=== PATIENT | male | born 1970 | race Caucasian/White ===

== ENCOUNTER 2019-03-28 10:52 | Inpatient (IN) | payer BC, OTHER ==
[~2019-03-28] VITALS: Ht 185.4 cm; Wt 129.6 kg
[2019-03-28] MEDS ORDERED: normal saline 1000ML IV soln IVB ONE (11:20)
[2019-03-28] MEDS ORDERED: morphine 4 MG/ML inj SYRINge IV PRN (11:20)
[2019-03-28] MEDS ORDERED: ondansetron/PF 4mg/2ml inj IV ONE (11:20)
[2019-03-28 11:24] LABS: CLARITY,URINE CLEAR (Clear); COLOR,URINE YELLOW (Yellow); GLUCOSE, URINE >=1000 mg/dl (Neg); KETONES,URINE >=80 mg/dl (Neg); LEUKOCYTE ESTERASE ,URINE NEGATIVE (Neg); NITRITES, URINE NEGATIVE (Neg); OCCULT BLOOD,URINE SMALL (Neg); PROTEIN,URINE 100 mg/dl (Neg); UROBILINOGEN,URINE 0.2 E.U/dL (0.2-1.0)
[2019-03-28 11:25] LABS: UA COLLECTION TYPE CLN CATCH MIDSTREAM
[2019-03-28 11:36] LABS: WBC,URINE 0-4 /HPF (0-4)
[2019-03-28 11:37] LABS: SQUAMOUS EPITHELIAL CELL,UR FEW /LPF (FEW)
[2019-03-28 11:38] LABS: MUCUS STRANDS FEW /LPF (Neg)
[2019-03-28 11:47] LABS: BACTERIA,URINE NONE SEEN /HPF (Neg)
[2019-03-28 12:07] LABS: BASOPHILS # (AUTO) 0.1 X10'3 (0-0.2); BASOPHILS % (AUTO) 0.6 % (0-1); EOSINOPHILS # (AUTO) 0.1 X10'3 (0-0.9); HEMATOCRIT 41.7 % (42.0-52.0); HEMOGLOBIN 14.8 g/dl (14.0-17.9); LYMPHOCYTES # (AUTO) 1.8 X10'3 (1.1-4.8); MEAN CORPUSCULAR HEMOGLOBIN 29.2 PG (27.0-31.0); MEAN CORPUSCULAR HGB CONC 35.4 g/dL (33.0-36.5); MEAN CORPUSCULAR VOLUME 82.3 FL (78-98); MEAN PLATELET VOLUME 9.5 FL (7.4-10.4); MONOCYTES # (AUTO) 0.9 X10'3 (0-0.9); MONOCYTES % (AUTO) 6.8 % (2-12); NEUTROPHILS # (AUTO) 10.7 X10'3 (1.8-7.7); NEUTROPHILS % (AUTO) 78.6 % (42-75); PLATELET COUNT 173 X10'3 (140-440); RED BLOOD COUNT 5.07 X10'6 (4.70-6.10); RED CELL DISTRIBUTION WIDTH 13.9 % (11.5-14.5); WHITE BLOOD COUNT 13.6 X10'3 (4.5-11.0)
[2019-03-28 12:24] LABS: ALANINE AMINOTRANSFERASE 37 U/L (12-78); ALBUMIN 3.8 G/DL (3.4-5.0); ALBUMIN/GLOBULIN RATIO 0.9 (1.1-1.5); ALKALINE PHOSPHATASE 120 IU/L (46-116); ASPARTATE AMINO TRANSFERASE 21 U/L (10-37); BLOOD UREA NITROGEN 11 MG/DL (7-18); BUN/CREATININE RATIO 10.8 (5.4-32.0); CALCIUM 8.1 MG/DL (8.5-10.1); CHLORIDE 97 MMOL/L (99-107); CREATININE 1.02 MG/DL (0.60-1.10); GLUCOSE 329 MG/DL (70-104); POTASSIUM 4.7 MMOL/L (3.5-5.1); SODIUM 130 MMOL/L (135-145); TOTAL PROTEIN 8.2 G/DL (6.4-8.2); eGFR 78 ML/MIN
[2019-03-28 12:26] LABS: ANION GAP 11 (8-16); LIPASE 1740 U/L (73-393)
[2019-03-28] MEDS ORDERED: iohexol 300mg/ml 100ml inj. ONE (12:45)
[2019-03-28] MEDS ORDERED: ketorolac trometh. 30mg/ml inj. IV ONE (13:35)
[2019-03-28] MEDS ORDERED: normal saline 1000ML IV soln IV ONE (13:35)
[2019-03-28] MEDS ORDERED: piperacillin/tazo 3.375gm/50ml 50 ML IV ONE (13:35)
[2019-03-28] MEDS ORDERED: AMLO10TA2 PO (13:52)
[2019-03-28] MEDS ORDERED: SPIR25TA5 PO (13:52)
[2019-03-28] MEDS ORDERED: VALS320T2 PO (13:52)
[2019-03-28] MEDS ORDERED: fentaNYL/PF 50MCG/1 ML 2ML syringe IV ONE (13:55)
[2019-03-28] MEDS: K and/or MAG REPLACEMENT MC SCH (14:30)
[2019-03-28] MEDS ORDERED: ondansetron/PF 4mg/2ml inj IV PRN (14:30)
[2019-03-28] MEDS ORDERED: acetaminophen 325mg tablet PO PRN (14:30)
[2019-03-28] MEDS ORDERED: potassium Cl 20 mEq SR tablet PO PRN ×2 (14:30)
[2019-03-28] MEDS ORDERED: magnesium Cl slow-release 64mg tablet PO PRN (14:30)
[2019-03-28] MEDS ORDERED: metoclopramide 5 mg/ml inj IV PRN (14:30)
[2019-03-28] MEDS ORDERED: morphine 2 MG/ML inj. syringe IV PRN (14:30)
[2019-03-28] MEDS ORDERED: diphenhydrAMINE 25mg capsule PO PRN (14:30)
[2019-03-28] MEDS ORDERED: magnesium hydroxide 30ml (MOM) UD suspension PO PRN (14:30)
[2019-03-28] MEDS ORDERED: bisacodyl 10mg suppository rectal RC PRN (14:30)
[2019-03-28] MEDS ORDERED: potassium CL 10mEq/100ml bag 100 ML IV PRN ×2 (14:30)
[2019-03-28] MEDS ORDERED: magnesium 4gm in 100ml NS 100 ML IV PRN (14:30)
[2019-03-28] MEDS ORDERED: diphenhydrAMINE 50 mg/ml inj IV PRN (14:30)
[2019-03-28] MEDS ORDERED: magnesium 2GM in 50ml NS 50 ML IV PRN (14:30)
[2019-03-28] MEDS ORDERED: mag hydrox/Alum hydrox/simeth 30ml oral suspension PO PRN (14:30)
[2019-03-28] MEDS: normal saline 1000ml 1,000 ML IV SCH (14:30)
--- NOTE | 2019-03-28 14:39 | NUR ---
KAL: JAMES: [phone]
[2019-03-28 14:47] LABS: INR 0.9 INR
--- NOTE | 2019-03-28 15:44 | NUR ---
Patient in room . I have received report from GAS PLUMBING INSPECTOR and had the opportunity to ask questions and assume patient care.
[2019-03-28] MEDS ORDERED: piperacillin/tazo 3.375gm/50ml 50 ML IV SCH ×2 (16:00→20:11)
[2019-03-28 16:16] VITALS: BP 133/72
--- NOTE | 2019-03-28 16:42 | NUR ---
Patient oriented to room, call light with in reach
[2019-03-28] MEDS: morphine 2 MG/ML inj. syringe IV PRN ×2 (17:25→20:59)
[2019-03-28 17:45] LABS: HEMOGLOBIN A1C 11.2 % (4.5-6.2)
[2019-03-28 18:00] VITALS: BP 125/78
--- NOTE | 2019-03-28 18:30 | NUR ---
Patient in room [facility]. I have received report from NAGI Quigley and had the opportunity to ask questions and assume patient care.
--- NOTE | 2019-03-28 19:10 | NUR ---
Pt down to MRI
[2019-03-28] MEDS ORDERED: MESSAGE TO PHARMACY PO ONE (20:00)
[2019-03-28] MEDS ORDERED: dextrose 50%-water 50ml dispensing syringe IV PRN ×2 (20:00)
[2019-03-28] MEDS ORDERED: dextrose ORAL solution 15 GM/59 ML bottle PO PRN ×2 (20:00)
[2019-03-28] MEDS ORDERED: glucagon, human recombinant 1mg kit SUBCUT PRN (20:00)
[2019-03-28] MEDS: heparin, porcine 5000 units/ml vial SQ SCH (20:21)
[2019-03-28] MEDS: piperacillin/tazo 3.375gm/50ml 50 ML IV SCH (20:27)
[2019-03-28] MEDS: vancomycin/NS 1 GM ADD-VANTAGE 250 ML IV SCH ×2 (20:46→22:26)
[2019-03-28] MEDS: insulin glargine (Lantus) pen - multi-dose SQ SCH (21:57)
[2019-03-28] MEDS: insulin Lispro (HumaLOG) vial - multi-dose SQ SCH (21:58)
[2019-03-28] MEDS: acetaminophen 325mg tablet PO PRN (23:11)
[2019-03-28 23:35] VITALS: BP 119/67
[2019-03-28 23:35] LABS: URINE AMPHETAMINE SCREEN NEGATIVE (Neg); URINE BARBITUATE SCREEN NEGATIVE (Neg); URINE BENZODIAZEPINES SCREEN NEGATIVE (Neg); URINE CANNABINOID SCREEN NEGATIVE (Neg); URINE COCAINE SCREEN NEGATIVE (Neg); URINE METHADONE SCREEN NEGATIVE (Neg); URINE OPIATE SCREEN POSITIVE (Neg); URINE PHENCYCLIDINE SCREEN NEGATIVE (Neg)
[2019-03-28 23:36] LABS: CLARITY,URINE CLEAR (Clear); COLOR,URINE YELLOW (Yellow); GLUCOSE, URINE 500 mg/dl (Neg); KETONES,URINE 40 mg/dl (Neg); LEUKOCYTE ESTERASE ,URINE NEGATIVE (Neg); NITRITES, URINE NEGATIVE (Neg); OCCULT BLOOD,URINE SMALL (Neg); PH,URINE 5.5 (4.8-8.0); PROTEIN,URINE 30 mg/dl (Neg)
[2019-03-28 23:38] LABS: UA COLLECTION TYPE VOIDED
[2019-03-28 23:52] LABS: BACTERIA,URINE NONE SEEN /HPF (Neg); RBC,URINE 0-2 /HPF (0-2); SQUAMOUS EPITHELIAL CELL,UR FEW /LPF (FEW); WBC,URINE NONE SEEN /HPF (0-4)
[2019-03-29] MEDS: morphine 2 MG/ML inj. syringe IV PRN (02:53)
[2019-03-29] MEDS: piperacillin/tazo 3.375gm/50ml 50 ML IV SCH ×3 (04:14→21:53)
[2019-03-29] MEDS: normal saline 1000ml 1,000 ML IV SCH ×3 (04:14→20:30)
[2019-03-29 05:05] LABS: ALBUMIN 2.6 G/DL (3.4-5.0); ALKALINE PHOSPHATASE 76 IU/L (46-116); ANION GAP 10 (8-16); BILIRUBIN,TOTAL 1.9 MG/DL (0.1-1.0); BLOOD UREA NITROGEN 8 MG/DL (7-18); BUN/CREATININE RATIO 9.6 (5.4-32.0); CHLORIDE 101 MMOL/L (99-107); CREATININE 0.83 MG/DL (0.60-1.10); HDL CHOLESTEROL 21 MG/DL (35-60); LDL CHOLESTEROL 42 MG/DL (50-100); LIPASE 851 U/L (73-393); MAGNESIUM 1.9 MG/DL (1.5-2.4); SODIUM 133 MMOL/L (135-145); TOTAL CARBON DIOXIDE 22.2 MMOL/L (24-32); eGFR > 90 ML/MIN
[2019-03-29 05:22] LABS: ALBUMIN/GLOBULIN RATIO 0.7 (1.1-1.5); CHOL/HDL RATIO 11.6 (0.00-4.99); CHOLESTEROL 244 MG/DL (0-200); GLUCOSE 244 MG/DL (70-104); PHOSPHORUS 2.4 MG/DL (2.3-4.5); POTASSIUM 3.7 MMOL/L (3.5-5.1); TOTAL PROTEIN 6.3 G/DL (6.4-8.2)
[2019-03-29 05:30] LABS: ALANINE AMINOTRANSFERASE 28 U/L (12-78); ASPARTATE AMINO TRANSFERASE 25 U/L (10-37); TRIGLYCERIDES 1628 MG/DL (20-135)
--- NOTE | 2019-03-29 06:27 | NUR ---
Problems reprioritized. Patient report given, questions answered & plan of care reviewed with NAGI Montoya.
[2019-03-29 07:23] LABS: HEMATOCRIT 39.8 % (42.0-52.0); HEMOGLOBIN 14.1 g/dl (14.0-17.9); MEAN CORPUSCULAR HEMOGLOBIN 29.2 PG (27.0-31.0); MEAN CORPUSCULAR HGB CONC 35.3 g/dL (33.0-36.5); MEAN CORPUSCULAR VOLUME 82.7 FL (78-98); MEAN PLATELET VOLUME 11.1 FL (7.4-10.4); PLATELET COUNT 194 X10'3 (140-440); RED BLOOD COUNT 4.82 X10'6 (4.70-6.10); RED CELL DISTRIBUTION WIDTH 13.8 % (11.5-14.5); WHITE BLOOD COUNT 13.3 X10'3 (4.5-11.0)
[2019-03-29 07:28] LABS: TOTAL CELLS COUNTED 100
[2019-03-29 07:30] LABS: PLATELET ESTIMATE NORMAL
[2019-03-29 08:00] VITALS: BP 136/75
[2019-03-29] MEDS ORDERED: non-formulary drug (Amlodipine Besylate 1 TAB) PO SCH (08:00)
[2019-03-29] MEDS ORDERED: VALSARTAN PO SCH (08:00)
[2019-03-29] MEDS: K and/or MAG REPLACEMENT MC SCH (08:00)
[2019-03-29] MEDS: HYDROcodone/acetaminophen 10/325mg tab PO PRN ×3 (08:41→19:33)
[2019-03-29] MEDS: losartan 50mg tablet PO SCH (08:42)
[2019-03-29] MEDS: amLODIPine 5mg tablet PO SCH (08:42)
[2019-03-29] MEDS: spironolactone 25 MG tablet PO SCH (08:42)
[2019-03-29] MEDS: heparin, porcine 5000 units/ml vial SQ SCH ×2 (08:43→20:24)
[2019-03-29] MEDS: insulin Lispro (HumaLOG) vial - multi-dose SQ SCH ×2 (08:50→19:48)
[2019-03-29] MEDS: omega-3 acid ethyl esters 1GM capsule PO SCH ×2 (11:07→19:33)
[2019-03-29] MEDS: atorvastatin 20mg tablet PO SCH (11:07)
[2019-03-29 11:20] VITALS: BP 140/73
--- NOTE | 2019-03-29 11:45 | NUR ---
Patient in room [facility]. I have received report from Romain BARFIELD and had the opportunity to ask questions and assume patient care.
--- NOTE | 2019-03-29 12:39 | NUR ---
DM Consult: A1C 11.2. Pt admit w/ abdominal pain hx 3 weeks prior DX acute pancreatitis lipase down to 851 today, TG 1628, newly DX DM w/ GLU 261 on admit. Per MD note sepsis from cholangitis s/p MRCP showing no gallstones; CT shows hepatic steatosis w/ DX non-alcoholic steatohepatitis per MD. To remain NPO at this time. LBM 9/10. Per EMR pt having nausea/abdominal pain still. Pt will need thorough DM/HH diet eds once more stable prior to d/c given newly DX DM and TG 1628. Pt is placed on hyperglycemia protocol and receiving lipitor. Will continue to monitor. Rec: 1. advance diet per MD to low-fat/heart healthy/carb controlled 2. DM/HH diet eds once stable prior to d/c 3. wt per rx Addendum: 03/29/19 at [address] Amended: Links added.
--- NOTE | 2019-03-29 12:52 | NUR ---
pages Dr. Alfonso - pt states you told him he could have a liquid diet? Please clarify, as liquid diet order has not been placed. NAGI Montoya [id number]
[2019-03-29 13:31] VITALS: BP 135/78
--- NOTE | 2019-03-29 14:51 | NUR ---
Student Medication Administration: For this medication-pass time frame, all medication were reviewed, dispensed, administered and documented per hospital policy by Arcelia LAZAR.
--- NOTE | 2019-03-29 17:28 | NUR ---
Student Medication Administration: For this medication-pass time frame, all medication were reviewed, dispensed, administered and documented per hospital policy by Dominga Student Nurse.
--- NOTE | 2019-03-29 17:31 | NUR ---
Student documentation: I have reviewed and agree with all interventions, assessments performed and documented by Dominga Student Nurse.
--- NOTE | 2019-03-29 17:57 | NUR ---
Student Medication Administration: For this medication-pass time frame, all medication were reviewed, dispensed, administered and documented per hospital policy by Gemma BONILLA [facility].
[2019-03-29] MEDS ORDERED: SINCALIDE IV ONE (18:00)
[2019-03-29] MEDS ORDERED: NORMAL SALINE IV ONE (18:00)
--- NOTE | 2019-03-29 18:05 | NUR ---
Patient in room [facility]. I have received report from Kalee LAZAR and had the opportunity to ask questions and assume patient care.
[2019-03-29] MEDS: lactobacillus rhamnosus 10,000 MMU CELLS/CAPSULE PO SCH (19:33)
[2019-03-29 20:00] VITALS: BP 146/85
[2019-03-29] MEDS: insulin glargine (Lantus) pen - multi-dose SQ SCH (21:43)
[2019-03-30] VITALS: BP 140/73
[2019-03-30] MEDS ORDERED: VANCOMYCIN LEVEL IV ONE ×2 (03:30)
[2019-03-30] MEDS: HYDROcodone/acetaminophen 5mg/325mg tablet PO PRN ×3 (04:08→21:02)
[2019-03-30] MEDS: piperacillin/tazo 3.375gm/50ml 50 ML IV SCH ×3 (04:19→22:17)
[2019-03-30 04:54] LABS: BASOPHILS # (AUTO) 0.1 X10'3 (0-0.2); BASOPHILS % (AUTO) 0.6 % (0-1); EOSINOPHILS # (AUTO) 0.1 X10'3 (0-0.9); EOSINOPHILS % (AUTO) 1.2 % (0-6); HEMATOCRIT 37.6 % (42.0-52.0); HEMOGLOBIN 13.1 g/dl (14.0-17.9); LYMPHOCYTES # (AUTO) 1.4 X10'3 (1.1-4.8); LYMPHOCYTES % (AUTO) 13.9 % (21-51); MEAN CORPUSCULAR HEMOGLOBIN 29.2 PG (27.0-31.0); MEAN CORPUSCULAR HGB CONC 34.8 g/dL (33.0-36.5); MEAN CORPUSCULAR VOLUME 83.8 FL (78-98); MEAN PLATELET VOLUME 10.3 FL (7.4-10.4); MONOCYTES # (AUTO) 0.8 X10'3 (0-0.9); MONOCYTES % (AUTO) 7.3 % (2-12); PLATELET COUNT 101 X10'3 (140-440); RED BLOOD COUNT 4.49 X10'6 (4.70-6.10); RED CELL DISTRIBUTION WIDTH 14.4 % (11.5-14.5); WHITE BLOOD COUNT 10.4 X10'3 (4.5-11.0)
[2019-03-30 05:10] LABS: ALBUMIN 2.5 G/DL (3.4-5.0); ALBUMIN/GLOBULIN RATIO 0.6 (1.1-1.5); ALKALINE PHOSPHATASE 75 IU/L (46-116); BILIRUBIN,TOTAL 1.4 MG/DL (0.1-1.0); BLOOD UREA NITROGEN 7 MG/DL (7-18); BUN/CREATININE RATIO 8.5 (5.4-32.0); CALCIUM 7.1 MG/DL (8.5-10.1); CREATININE 0.82 MG/DL (0.60-1.10); LIPASE 381 U/L (73-393); MAGNESIUM 2.1 MG/DL (1.5-2.4); TOTAL CARBON DIOXIDE 22.3 MMOL/L (24-32); TOTAL PROTEIN 6.9 G/DL (6.4-8.2); eGFR > 90 ML/MIN
[2019-03-30 06:06] LABS: ALANINE AMINOTRANSFERASE 23 U/L (12-78); ANION GAP 12 (8-16); ASPARTATE AMINO TRANSFERASE 18 U/L (10-37); CHLORIDE 100 MMOL/L (99-107); GLUCOSE 196 MG/DL (70-104); PHOSPHORUS 1.6 MG/DL (2.3-4.5); POTASSIUM 3.8 MMOL/L (3.5-5.1); SODIUM 134 MMOL/L (135-145)
--- NOTE | 2019-03-30 06:28 | NUR ---
Problems reprioritized. Patient report given, questions answered & plan of care reviewed with Laura LAZAR.
[2019-03-30 07:31] VITALS: BP 127/66
[2019-03-30 08:00] VITALS: BP 112/79
[2019-03-30] MEDS: K and/or MAG REPLACEMENT MC SCH (08:00)
[2019-03-30] MEDS: heparin, porcine 5000 units/ml vial SQ SCH ×2 (08:00→19:29)
[2019-03-30] MEDS: normal saline 1000ml 1,000 ML IV SCH ×2 (08:10→16:30)
[2019-03-30] MEDS: spironolactone 25 MG tablet PO SCH (08:11)
[2019-03-30] MEDS: losartan 50mg tablet PO SCH (08:12)
[2019-03-30] MEDS: atorvastatin 20mg tablet PO SCH (08:12)
[2019-03-30] MEDS: lactobacillus rhamnosus 10,000 MMU CELLS/CAPSULE PO SCH ×2 (08:12→19:25)
[2019-03-30] MEDS: omega-3 acid ethyl esters 1GM capsule PO SCH ×2 (08:13→19:23)
[2019-03-30] MEDS: amLODIPine 5mg tablet PO SCH (08:13)
[2019-03-30] MEDS: fenofibrate 145mg tablet PO SCH (08:16)
[2019-03-30] MEDS: insulin Lispro (HumaLOG) vial - multi-dose SQ SCH ×3 (10:13→19:16)
[2019-03-30 11:44] VITALS: BP 101/71
[2019-03-30 12:00] VITALS: BP 101/74
--- NOTE | 2019-03-30 12:30 | NUR ---
Patient in room [facility]. I have received report from Laura LAZAR and had the opportunity to ask questions and assume patient care.
--- NOTE | 2019-03-30 14:40 | NUR ---
F/u: Pt seen by RD for written/verbal DM/heart healthy eds along w/ RD contact information and CDE course information provided given new DM DX and hypertriglyceridemia. Pt refused verbal DM and heart healthy eds reports "he will ask questions if he has any." RD encouraged attending CDE course and contacting RD for further questions. Will likely need DM/HH reinforcement prior to d/c if pt agreeable. Addendum: 03/30/19 at [address] Amended: Links added.
--- NOTE | 2019-03-30 17:18 | NUR ---
I have reviewed the assessment, intervention, and documentation done by Antwan Taylor, [facility].
--- NOTE | 2019-03-30 17:55 | NUR ---
Problems reprioritized. Patient report given, questions answered & plan of care reviewed with Laura LAZAR.
[2019-03-30 18:00] VITALS: BP 132/85
--- NOTE | 2019-03-30 18:00 | NUR ---
Patient in room [facility]. I have received report from Laura LAZAR and had the opportunity to ask questions and assume patient care.
[2019-03-30] MEDS: Neutra Phos packet PO SCH (21:03)
[2019-03-30] MEDS: insulin glargine (Lantus) pen - multi-dose SQ SCH (22:07)
[2019-03-31 00:02] VITALS: BP 106/65
[2019-03-31] MEDS ORDERED: VANCOMYCIN LEVEL IV ONE ×2 (01:30→19:30)
[2019-03-31 01:51] LABS: BASOPHILS # (AUTO) 0.1 X10'3 (0-0.2); BASOPHILS % (AUTO) 1.1 % (0-1); EOSINOPHILS # (AUTO) 0.3 X10'3 (0-0.9); HEMATOCRIT 33.9 % (42.0-52.0); HEMOGLOBIN 11.7 g/dl (14.0-17.9); LYMPHOCYTES # (AUTO) 1.9 X10'3 (1.1-4.8); MEAN CORPUSCULAR HEMOGLOBIN 28.2 PG (27.0-31.0); MEAN CORPUSCULAR HGB CONC 34.4 g/dL (33.0-36.5); MEAN CORPUSCULAR VOLUME 81.8 FL (78-98); MONOCYTES # (AUTO) 0.7 X10'3 (0-0.9); MONOCYTES % (AUTO) 8.1 % (2-12); NEUTROPHILS # (AUTO) 5.9 X10'3 (1.8-7.7); NEUTROPHILS % (AUTO) 66.8 % (42-75); PLATELET COUNT 108 X10'3 (140-440); RED BLOOD COUNT 4.14 X10'6 (4.70-6.10); RED CELL DISTRIBUTION WIDTH 13.9 % (11.5-14.5); WHITE BLOOD COUNT 8.9 X10'3 (4.5-11.0)
[2019-03-31] MEDS: acetaminophen 325mg tablet PO PRN (01:54)
[2019-03-31 02:07] LABS: ALANINE AMINOTRANSFERASE 19 U/L (12-78); ALBUMIN 2.3 G/DL (3.4-5.0); ALBUMIN/GLOBULIN RATIO 0.6 (1.1-1.5); ALKALINE PHOSPHATASE 67 IU/L (46-116); ANION GAP 8 (8-16); BILIRUBIN,TOTAL 0.9 MG/DL (0.1-1.0); BLOOD UREA NITROGEN 6 MG/DL (7-18); BUN/CREATININE RATIO 8.3 (5.4-32.0); CALCIUM 7.6 MG/DL (8.5-10.1); CHLORIDE 103 MMOL/L (99-107); CREATININE 0.72 MG/DL (0.60-1.10); GLUCOSE 167 MG/DL (70-104); LIPASE 263 U/L (73-393); MAGNESIUM 2.1 MG/DL (1.5-2.4); PHOSPHORUS 2.2 MG/DL (2.3-4.5); SODIUM 136 MMOL/L (135-145); TOTAL PROTEIN 6.4 G/DL (6.4-8.2); VANCOMYCIN,TROUGH 14.2 UG/ML (6.0-14.0); eGFR > 90 ML/MIN
[2019-03-31 02:08] LABS: ASPARTATE AMINO TRANSFERASE 16 U/L (10-37); POTASSIUM 3.5 MMOL/L (3.5-5.1)
[2019-03-31] MEDS: normal saline 1000ml 1,000 ML IV SCH ×2 (02:30→12:30)
[2019-03-31] MEDS: piperacillin/tazo 3.375gm/50ml 50 ML IV SCH (05:03)
--- NOTE | 2019-03-31 06:14 | NUR ---
Problems reprioritized. Patient report given, questions answered & plan of care reviewed with Stephie LAZAR. Addendum: 03/31/19 at 0616 by Hugh Mcknight RN Report given to Vinayak LAZAR, not Stephie LAZAR
--- NOTE | 2019-03-31 06:38 | NUR ---
Problems reprioritized. Patient report given, questions answered & plan of care reviewed with Hugh LAZAR.
[2019-03-31 06:53] VITALS: BP 128/78
[2019-03-31] MEDS: omega-3 acid ethyl esters 1GM capsule PO SCH (07:45)
[2019-03-31] MEDS: atorvastatin 20mg tablet PO SCH (07:45)
[2019-03-31] MEDS: lactobacillus rhamnosus 10,000 MMU CELLS/CAPSULE PO SCH (07:46)
[2019-03-31] MEDS: spironolactone 25 MG tablet PO SCH (07:46)
[2019-03-31] MEDS: Neutra Phos packet PO SCH ×2 (07:47→12:29)
[2019-03-31] MEDS: losartan 50mg tablet PO SCH (07:47)
[2019-03-31] MEDS: amLODIPine 5mg tablet PO SCH (07:47)
[2019-03-31] MEDS: heparin, porcine 5000 units/ml vial SQ SCH (07:52)
[2019-03-31] MEDS: fenofibrate 145mg tablet PO SCH (07:58)
[2019-03-31] MEDS: K and/or MAG REPLACEMENT MC SCH (08:00)
--- NOTE | 2019-03-31 08:45 | NUR ---
PATIENT MEDICATION REGIME WITH VANCOMYCIN DISCUSSED WITH PHARMACIST. PATIENT WILL RECEIVE 1.5Gm VANCO q4 verified with pharmacy.
[2019-03-31] MEDS: insulin Lispro (HumaLOG) vial - multi-dose SQ SCH ×2 (09:25→13:53)
[2019-03-31] MEDS ORDERED: LEVO750T46 PO (10:50)
[2019-03-31] MEDS ORDERED: METR500T PO (10:51)
[2019-03-31] MEDS ORDERED: FENO145T25 PO (10:53)
[2019-03-31] MEDS ORDERED: METF1000 PO (10:53)
[2019-03-31] MEDS ORDERED: [UNRECOGNIZED DRUG - CODE] SQ (10:56)
[2019-03-31 11:00] VITALS: BP 142/69
[2019-03-31] MEDS: HYDROcodone/acetaminophen 5mg/325mg tablet PO PRN (11:22)
--- NOTE | 2019-03-31 16:50 | NUR ---
PATIENT DISCHARGED INTO HIS OWN CARE, PATIENT EDUCATED ON NEW MEDICATION AT TIME OF DISCHARGE. PATIENT IS NEWLY DIAGNOSED DIABETIC AND DIABETIC TEACHING WAS DONE AT THIS TIME. 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 PATIENT MEDICATION WERE CALLED TO HIS PHARMACY FOR FIXTURE REPAIRER FABRICATOR AND [facility] SUPPLIED THE GLUCOMETER STRIPS AND LANCET. PATIENT LEFT WITH ALL BELONGING NOT BEFORE HAVING IV TAKEN OUT. CANULA WAS WHOLE AND INTACT UPON DISCHARGE AND SITE SHOWED MINIMAL BLEEDING. PATIENT WALKED OUT THE HOSPITAL UNDER HIS OWN POWER AND WAS ACCOMPANIED BY EMPLOYEE.
== END 2019-03-31 16:42 | disposition home or self-care (01) | DRG 871 ==
LOC: ER 10:52 → SUR 3N 15:52 → CMPBEDREQ 19:43
PROVIDERS: ADMIT Family Medicine; ATTEND Internal Medicine
DX: A41.9 Sepsis, unspecified organism (principal); K85.10 Biliary acute pancreatitis without necrosis or infection; E87.1 Hypo-osmolality and hyponatremia; K80.31 Calculus of bile duct with cholangitis, unspecified, with obstruction; E11.9 Type 2 diabetes mellitus without complications; E66.01 Morbid (severe) obesity due to excess calories; E78.1 Pure hyperglyceridemia; E88.81 Metabolic syndrome and other insulin resistance; M54.5 Low back pain; G89.29 Other chronic pain; F17.220 Nicotine dependence, chewing tobacco, uncomplicated; I10 Essential (primary) hypertension; K75.81 Nonalcoholic steatohepatitis (NASH); Z79.84 Long term (current) use of oral hypoglycemic drugs; Z79.899 Other long term (current) drug therapy; Z82.49 Family history of ischemic heart disease and other diseases of the circulatory system; Z87.442 Personal history of urinary calculi; Z68.37 Body mass index [BMI] 37.0-37.9, adult
CPT/HCPCS: 36415; 74177; 74181; 76700; 80053; 80061; 80202; 80305; 80320; 81001; 82948; 83036; 83605; 83690; 83735; 84100; 84145; 85025; 87040; 87081; 96365; 96375; 99285; G0378; J1644; J1815; J1885; J2270; J2405; J2543; J2805; J3010; J3370; J7030; Q9967

== ENCOUNTER 2020-02-14 08:28 | Emergency (ER) | payer OTHER ==
[~2020-02-14] VITALS: Ht 185.4 cm; Wt 129.6 kg
[~2020-02-14 08:28] MED LIST: AMLO10TA2 PO; FENO145T25 PO; SPIR25TA5 PO; VALS320T2 PO; [UNRECOGNIZED DRUG - CODE] SQ
[2020-02-14] MEDS ORDERED: acetaminophen 325mg tablet PO ONE (08:50)
[2020-02-14] MEDS ORDERED: ketorolac trometh inj. 60 MG/2 ML VIAL IM ONE (08:50)
[2020-02-14 09:20] LABS: CLARITY,URINE CLEAR (Clear); COLOR,URINE YELLOW (Yellow); GLUCOSE, URINE NEGATIVE (Neg); KETONES,URINE NEGATIVE (Neg); LEUKOCYTE ESTERASE ,URINE NEGATIVE (Neg); NITRITES, URINE NEGATIVE (Neg); OCCULT BLOOD,URINE TRACE-LYSED (Neg); PROTEIN,URINE NEGATIVE (Neg); UROBILINOGEN,URINE 0.2 E.U/dL (0.2-1.0)
[2020-02-14 09:21] LABS: UA COLLECTION TYPE CLN CATCH MIDSTREAM
[2020-02-14 09:37] LABS: MUCUS STRANDS FEW /LPF (Neg); SQUAMOUS EPITHELIAL CELL,UR FEW /LPF (FEW)
[2020-02-14 09:38] LABS: BACTERIA,URINE FEW /HPF (Neg); RBC,URINE 0-2 /HPF (0-2); WBC,URINE 0-4 /HPF (0-4)
[2020-02-14] MEDS ORDERED: LIDO700A32 TOP (10:12)
[2020-02-14] MEDS ORDERED: HYDR-3965 PO (10:12)
[2020-02-14] MEDS ORDERED: CYCL-1 PO (10:12)
[2020-02-14] MEDS ORDERED: IBUP-1984 PO (10:12)
[2020-02-14] MEDS ORDERED: ACET-812 PO (10:12)
[2020-02-14 10:55] VITALS: BP 157/94
== END 2020-02-14 10:40 | disposition home or self-care (01) ==
LOC: ER 08:29
DX: M54.9 Dorsalgia, unspecified (principal); R10.32 Left lower quadrant pain; I10 Essential (primary) hypertension; G89.29 Other chronic pain; Z72.89 Other problems related to lifestyle; Z79.899 Other long term (current) drug therapy
CPT/HCPCS: 81001; 96372; 99283; J1885

== ENCOUNTER 2021-08-08 11:58 | Emergency (ER) | payer OTHER ==
[~2021-08-08] VITALS: Ht 185.4 cm; Wt 127.0 kg
[~2021-08-08 11:58] MED LIST changes: +CYCL-1 PO; +LIDO700A32 TOP
[2021-08-08] MEDS ORDERED: SOTROVIMAB 500mg injection 500 MG in normal saline 100ml IV soln 100 ML IV ONE (15:30)
[2021-08-08 17:41] VITALS: BP 131/88
== END 2021-08-08 17:48 | disposition home or self-care (01) ==
LOC: ER 12:00
DX: U07.1 COVID-19 (principal); E78.00 Pure hypercholesterolemia, unspecified; I10 Essential (primary) hypertension; E11.9 Type 2 diabetes mellitus without complications; Z79.899 Other long term (current) drug therapy
CPT/HCPCS: 99284; J3490; M0247; Q0247